=== PATIENT | female | born 1995 | race Caucasian/White ===

== ENCOUNTER 2016-08-29 20:10 | Emergency (ER) | payer OTHER ==
[2016-08-29 22:40] LABS: HEMOGLOBIN 14.4 gm/dl (12.3-15.3); RED BLOOD COUNT 4.8 M/UL (4.00-5.10); WHITE BLOOD COUNT 6.3 K/UL (4.5-11.0)
[2016-08-29 23:00] LABS: BUN/CREATININE RATIO 11 (0-10)
[2016-11-19] MEDS ORDERED: IBUPROFEN600 MG PO (10:14)
[2016-11-19] MEDS ORDERED: NORCO 5-325 TA1 EACH PO (10:15)
[2016-11-19] MEDS ORDERED: COLACE 100MG C100 MG PO (10:16)
== END 2016-08-30 00:03 | disposition home or self-care (01) ==
LOC: ER1 20:10
PROVIDERS: Student in an Organized Health Care Education/Training Program
DX: S16.1XXA Strain of muscle, fascia and tendon at neck level, initial encounter (principal); S39.012A Strain of muscle, fascia and tendon of lower back, initial encounter; S20.219A Contusion of unspecified front wall of thorax, initial encounter; R31.21 Asymptomatic microscopic hematuria; V89.2XXA Person injured in unspecified motor-vehicle accident, traffic, initial encounter; Y93.89 Activity, other specified; Y92.410 Unspecified street and highway as the place of occurrence of the external cause
CPT/HCPCS: 36415; 71010; 80053; 81001; 82550; 82553; 83690; 83874; 84484; 84703; 85025; 87086; 93005; 99284

== ENCOUNTER → 2020-07-25 | Outpatient (CLI) | payer OTHER ==
[~2020-07-25] MED LIST: AUGMENTIN 875-1 EACH PO; BACTROBAN OINT22 GM EXT; COLACE 100MG C100 MG PO; IBUPROFEN600 MG PO; NORCO 5-325 TA1 EACH PO
== END ==
LOC: EROP 08:20
DX: R05 Cough (principal); R43.9 Unspecified disturbances of smell and taste; Z20.822 Contact with and (suspected) exposure to COVID-19
CPT/HCPCS: U0002

== ENCOUNTER 2021-05-13 12:30 | Emergency (ER) | payer OTHER ==
[2021-05-13 14:31] LABS: HEMOGLOBIN 15.6 gm/dl (12.3-15.3); RED BLOOD COUNT 5.03 M/UL (4.00-5.10); WHITE BLOOD COUNT 10.5 K/UL (4.5-11.0)
[2021-05-13 15:10] LABS: BUN/CREATININE RATIO 15 (0-10)
[2021-05-13] MEDS ORDERED: CEPHALEXIN500 MG PO (15:59)
== END 2021-05-13 16:10 | disposition home or self-care (01) ==
LOC: ER1 12:30
PROVIDERS: Physician Assistant
DX: O23.41 Unspecified infection of urinary tract in pregnancy, first trimester (principal); Z3A.01 Less than 8 weeks gestation of pregnancy
CPT/HCPCS: 76817; 80053; 81001; 84702; 85025; 99284

== ENCOUNTER 2021-10-01 16:19 | Outpatient (CLI) | payer BC, OTHER ==
[~2021-10-01 16:19] MED LIST changes: +CEPHALEXIN500 MG PO
== END 2021-10-01 18:43 | disposition home or self-care (01) ==
LOC: GENOP 16:19
DX: O47.02 False labor before 37 completed weeks of gestation, second trimester (principal); Z3A.25 25 weeks gestation of pregnancy
CPT/HCPCS: G0463

== ENCOUNTER 2021-11-19 10:18 | Outpatient (CLI) | payer BC, OTHER | END 2021-11-19 12:04 | disposition home or self-care (01) | LOC: GENOP 10:18 | DX: O47.03 False labor before 37 completed weeks of gestation, third trimester (principal); O42.913 Preterm premature rupture of membranes, unspecified as to length of time between rupture and onset of labor, third trimester; Z3A.33 33 weeks gestation of pregnancy | CPT/HCPCS: 81001; 82731; 84112; G0463 ==

== ENCOUNTER 2021-12-31 13:24 | Outpatient (CLI) | payer BC, OTHER ==
[2021-12-31 14:26] LABS: HEMOGLOBIN 11.6 gm/dl (12.3-15.3); RED BLOOD COUNT 4.14 M/UL (4.00-5.10); WHITE BLOOD COUNT 7.8 K/UL (4.5-11.0)
[2022-01-01] MEDS ORDERED: PRENATAL DHA200 MG PO (06:47)
[2022-01-01] MEDS ORDERED: UNISOM25 MG PO (06:47)
[2022-01-01] MEDS ORDERED: HYDROCODON-ACE1 EAC6 PO (08:10)
[2022-01-01] MEDS ORDERED: IBUPROFEN600 MG PO (08:10)
[2022-01-01] MEDS ORDERED: COLACE 100MG C100 MG PO (08:10)
== END 2021-12-31 14:44 | disposition home or self-care (01) ==
LOC: GENOP 13:24 → OB 15:45 → GENOP 15:45
PROVIDERS: Obstetrics & Gynecology
DX: Z01.812 Encounter for preprocedural laboratory examination (principal); O36.63X0 Maternal care for excessive fetal growth, third trimester, not applicable or unspecified; Z3A.39 39 weeks gestation of pregnancy; Z37.9 Outcome of delivery, unspecified
CPT/HCPCS: 81001; 85025

== ENCOUNTER 2021-12-31 15:51 | Inpatient (IN) | payer BC, OTHER ==
[~2021-12-31] VITALS: Ht 157.5 cm; Wt 73.5 kg
[2022-01-01 06:31] LABS: HEMOGLOBIN 10.9 gm/dl (12.3-15.3); RED BLOOD COUNT 3.78 M/UL (4.00-5.10); WHITE BLOOD COUNT 8.2 K/UL (4.5-11.0)
[2022-01-01] MEDS ORDERED: PRENATAL DHA200 MG PO (06:47)
[2022-01-01] MEDS ORDERED: UNISOM25 MG PO (06:47)
[2022-01-01] MEDS ORDERED: IBUPROFEN600 MG PO (08:10)
[2022-01-01] MEDS ORDERED: COLACE 100MG C100 MG PO (08:10)
[2022-01-01] MEDS ORDERED: HYDROCODON-ACE1 EAC6 PO (08:10)
[2022-01-02 06:50] LABS: HEMOGLOBIN 7.7 gm/dl (12.3-15.3)
[2022-01-02] MEDS ORDERED: HYDROCODON-ACE1 EAC4 PO (15:05)
[2022-01-02] MEDS ORDERED: DOCUSATE SODIU100 MG PO (15:05)
[2022-01-02] MEDS ORDERED: IBUPROFEN600 MG PO (15:09)
[2022-01-02] MEDS ORDERED: PHENERGAN 25 MG25 M1 PO (15:13)
== END 2022-01-02 19:19 | disposition home or self-care (01) | DRG 788 ==
LOC: OB 15:51
PROVIDERS: ADMIT Obstetrics & Gynecology
PROC: 4A1HXCZ Monitoring of Products of Conception, Cardiac Rate, External Approach (ICD-10-PCS; 2021-12-31)
PROC: 3E0234Z Introduction of Serum, Toxoid and Vaccine into Muscle, Percutaneous Approach (ICD-10-PCS; 2021-12-31)
PROC: B24BZZZ Ultrasonography of Heart with Aorta (ICD-10-PCS; 2021-12-31)
PROC: 10D00Z1 Extraction of Products of Conception, Low, Open Approach (ICD-10-PCS; principal; 2022-01-01 07:30)
DX: O36.63X0 Maternal care for excessive fetal growth, third trimester, not applicable or unspecified (principal); O99.344 Other mental disorders complicating childbirth; Z37.0 Single live birth; Z3A.39 39 weeks gestation of pregnancy; F32.A Depression, unspecified; Z20.822 Contact with and (suspected) exposure to COVID-19; F41.9 Anxiety disorder, unspecified; Z82.49 Family history of ischemic heart disease and other diseases of the circulatory system; Z83.3 Family history of diabetes mellitus; Z23 Encounter for immunization
CPT/HCPCS: ECHO; 82800; 85014; 85018; 85025; 90715; 93005; 93306; C9113; J0690; J1170; J1200; J1885; J2250; J2274; J2370; J2405; J2590; J3010